=== PATIENT | male | born 2000 | race Caucasian/White ===

== ENCOUNTER 2021-04-04 17:21 | Emergency (ER) | payer OTHER ==
[~2021-04-04] VITALS: Ht 182.9 cm; Wt 104.3 kg
--- NOTE | ~2021-04-04 | EMS ---
[address] [address] EMS Patient Care Report Name: COLIN LINDQUIST Room #: DEP MARTA Renteria#: [id number] Admission: 04/04/21 Attend Phys: Discharge: 04/04/21 Date of : [birth year] Report #: [id number] THIS REPORT FOR: //name// Report Transmitted: 04/07/2021 13:10 EMS Care Summary [place], [place]/[facility] Incident [id number] @ 04/04/2021 16:42 Incident Location [id number] [place] [address] Patient ANN LINDQUIST Male, 20 Years 2000 Patient Address [address] [place] [id number] Patient History Morbid Obesity,Bipolar II Disorder,Anxiety, Patient Allergies No known allergies, Patient Medications Topiramate, Risperdal, Depakote, Invega, Trazodone, Haldol, Famotidine, Chief Complaint Agitated Disposition Transported No Lights/[place] Reason Psychiatric Problem/Abnormal Behavior/Suicide Attempt Transported To [facility] Narrative Staff Nurse stated Pt has been aggressive towards other residence and staff that started a hour ago when he got back from a pass. Staff stated Pt was refusing to follow commands and to stay in his room but Pt still refused to and [address] [address] EMS Patient Care Report Name: COLIN LINDQUIST [facility] [id number] Admission: 04/04/21 Attend Phys: Discharge: 04/04/21 Date of : [birth year] Report #: [id number] to be aggressive towards other Pt and staff members. EMS asked Pt why he was having issues today and Pt stated that he has not been aggressive or being mean to people but is tired of people picking on him. Pt is with no other complaints noted to EMS. Pt found with staff in dinning room talking and laughing with staff members and is with no signs of distress noted. Pt is being sent out to ER for evaluation and any treatment Pt may need for being aggressive and trying to fight with other Pt and staff. Pt is alert and is placed on stretcher and secured with seat belts and moved to ambulance , taking from Ambulance to ER and transferred over to ER Bed. Report is giving to RN and Pt is in the care of ER staff. Initial Vitals @17:13P: 86,R: 18,BP: 114/82,Pain: 0/10,GCS: 15,Glucose: 110,Revised Trauma: 12, @17:14P: 86,R: 18,Pain: 0/10,GCS: 15,Revised Trauma: 12, Assessments @17:09MENTAL:Place Oriented,Time Oriented,Person Oriented,Event Oriented,SKIN:HEENT:Head/Face: No Abnormalities,Neck/Airway: No Abnormalities,LUNG SOUNDS:General: No Abnormalities,ABDOMEN:General: No Abnormalities,PELVIS//GI:No Abnormalities,EXTREMITIES:Capillary Refill: Right Upper: < 2 Sec,Left Arm: No Abnormalities,Right Arm: No Abnormalities,Left Leg: No Abnormalities,Right Leg: No Abnormalities,PULSE:Radial: 2+ Normal,NEURO:No Abnormalities,@17:15MENTAL:Time Oriented,Event Oriented,Place Oriented,Person Oriented,SKIN:HEENT:Head/Face: No Abnormalities,Neck/Airway: No Abnormalities,LUNG SOUNDS:General: No Abnormalities,ABDOMEN:General: No Abnormalities,PELVIS//GI:No Abnormalities,EXTREMITIES:Capillary Refill: Left Upper: < 2 Sec,Left Arm: No Abnormalities,Right Arm: No Abnormalities,Left Leg: No Abnormalities,Right Leg: No Abnormalities,PULSE:Radial: 2+ Normal,NEURO:No Abnormalities, Impression Behavioral/psychiatric episode Procedures @17:09 BLS Assessment Response: Unchanged Timeline 16:41,Call Received 16:41,Dispatch Notified 16:42,Dispatched 16:43,En Route 17:04,On Scene 17:09,At Patient 17:09,BLS Assessment,Response: Unchanged [address] [address] EMS Patient Care Report Name: COLIN LINDQUIST Room #: MACK Renteria#: [id number] Admission: 04/04/21 Attend Phys: Discharge: 04/04/21 Date of : [birth year] Report #: [id number] 17:13,BP: 114/82 M,PULSE: 86,RR: 18 R,SPO2: Ox,ETCO2: ,B,PAIN: 0,GCS: 15, 17:13,Depart Scene 17:14,BP: 114/ M,PULSE: 86,RR: 18 R,SPO2: Ox,ETCO2: ,BG: ,PAIN: 0,GCS: 15, 17:16,At Destination 17:25,Call Closed Disclaimer v1.1 Copyright 2021 [employer] This EMS Care Summary contains data elements from the applicable legal record (which may be displayed differently). It is designed to provide pertinent information for the following purposes: continuity of care, clinical quality, and state data reporting. The complete legal record is available to ED staff and administrators of the receiving hospital in [employer]'s Patient Tracker. All data is provided "as is."
[2021-04-04] MEDS ORDERED: CHLORPROMAZINE100 MG PO (17:30)
[2021-04-04] MEDS ORDERED: TRAMADOL 50 MG50 MG PO (17:30)
[2021-04-04] MEDS ORDERED: ACID CONTROLLER20 MG PO (17:31)
[2021-04-04] MEDS ORDERED: CLONAZEPAM 0.50.5 M1 PO (17:31)
[2021-04-04] MEDS ORDERED: DIVALPROEX SOD500 MG PO (17:31)
[2021-04-04] MEDS ORDERED: INVEGA SUS234 MG/1.5 IM (17:32)
[2021-04-04] MEDS ORDERED: RISPERDAL2 MG PO (17:33)
[2021-04-04] MEDS ORDERED: RESTORIL15 M1 PO (17:33)
[2021-04-04] MEDS ORDERED: TOPAMAX100 MG PO (17:34)
[2021-04-04 18:02] LABS: ABSOLUTE NEUTROPHILS 5.7 thou/uL (1.4-8.2); BASOPHILS 0.4 % (0.0-2.0); EOSINOPHILS 1.4 % (0.0-3.0); HEMATOCRIT 40.4 % (42.0-52.0); HEMOGLOBIN 13.6 gm/dL (14.0-18.0); LYMPHOCYTES 21.1 % (24.0-44.0); MCH 30.4 pg (26.0-34.0); MCHC 33.8 g/dL (28.0-37.0); MCV 89.8 fL (80.0-100.0); MONOCYTES 10.4 % (1.0-8.0); PLATELET COUNT 282 thou/uL (150-400); POLYS 66.7 % (36.0-66.0); RBC 4.49 mil/uL (4.50-6.00); RDW 15.8 % (10.5-14.5); WBC 8.5 thou/uL (4.0-11.0)
[2021-04-04 18:07] LABS: ANION GAP 12 mmol/L (7-16); BUN 13 mg/dL (7-18); CALCIUM 8.9 mg/dL (8.5-10.1); CHLORIDE 106 mmol/L (98-107); CO2 21 mmol/L (21-32); CREATININE 0.9 mg/dL (0.7-1.3); GLUCOSE 100 mg/dL (74-106); POTASSIUM 3.8 mmol/L (3.5-5.1); SODIUM 139 mmol/L (136-145)
[2021-04-04 18:13] LABS: ALBUMIN 3.7 g/dL (3.4-5.0); SALICYLATE < 2.8 mg/dL (2.8-20.0); SGOT 25 U/L (15-37); SGPT 75 U/L (16-63); TOTAL BILIRUBIN 0.4 mg/dL (0.2-1.0); TOTAL PROTEIN 6.6 g/dL (6.4-8.2)
[2021-04-04 19:43] LABS: AMP/METHAMP Negative (Negative); BARBITURATES Negative (Negative); BENZODIAZEPINES Negative (Negative); COCAINE Negative (Negative); METHADONE Negative (Negative); OPIATES Negative (Negative); PCP Negative (Negative)
[2021-04-04 21:10] VITALS: BP 123/49
== END 2021-04-04 21:11 ==
LOC: ER 17:21
PROVIDERS: Emergency Medicine
DX: R45.1 Restlessness and agitation (principal); Z20.822 Contact with and (suspected) exposure to COVID-19; R41.82 Altered mental status, unspecified; F41.9 Anxiety disorder, unspecified; K21.9 Gastro-esophageal reflux disease without esophagitis; F31.9 Bipolar disorder, unspecified; F12.90 Cannabis use, unspecified, uncomplicated; Z79.899 Other long term (current) drug therapy

== ENCOUNTER 2021-04-16 17:44 | Emergency (ER) | payer OTHER ==
[~2021-04-16] VITALS: Ht 172.7 cm; Wt 127.0 kg
[~2021-04-16 17:44] MED LIST: ACID CONTROLLER20 MG PO; CHLORPROMAZINE100 MG PO; CLONAZEPAM 0.50.5 M1 PO; DIVALPROEX SOD500 MG PO; INVEGA SUS234 MG/1.5 IM; RESTORIL15 M1 PO; RISPERDAL2 MG PO; TOPAMAX100 MG PO; TRAMADOL 50 MG50 MG PO
[2021-04-16 19:27] VITALS: BP 108/59
== END 2021-04-16 19:30 ==
LOC: ER 17:44
DX: F91.1 Conduct disorder, childhood-onset type (principal); F41.9 Anxiety disorder, unspecified; K21.9 Gastro-esophageal reflux disease without esophagitis; Z79.899 Other long term (current) drug therapy